=== PATIENT | male | born 1965 | race Caucasian/White ===

== ENCOUNTER 2021-10-10 13:33 | Emergency (ER) | payer BC ==
[2021-10-10 15:05] LABS: Protime INR 1.01
[2021-10-10 15:14] LABS: Absolute Lymphocytes (CBC) 0.4 K/uL (0.7-4.9); Basophils % 0.2 % (0-1.3); Hematocrit 40.6 % (39.6-49.0); Lymphocytes % 14.7 % (15.3-44.8); MPV 7.7 fL (7.6-11.3); RBC Red Blood Cell Count 4.79 M/uL (4.33-5.43)
[2021-10-10 15:22] LABS: ALT/SGPT 51 U/L (12-78); AST/SGOT 43 U/L (15-37); Albumin 3.2 g/dL (3.4-5.0); Alkaline Phosphatase 61 U/L (45-117); BUN Blood Urea Nitrogen 21 mg/dL (7-18); Bicarbonate 32 mmol/L (21-32); Bilirubin Direct 0.2 mg/dL (0-0.2); Bilirubin Total 0.5 mg/dL (0.2-1.0); Glucose Level 331 mg/dL (74-106); Magnesium 2.4 mg/dL (1.8-2.4); NT PRO-BNP 62 pg/mL (<125); Protein, Total 7.3 g/dL (6.4-8.2); Sodium Level 134 mmol/L (136-145); Troponin (Emerg Dept Use Only) < 0.02 ng/mL (0.0-0.045)
--- NOTE | 2021-10-10 15:52 | RAD REPORT ---
EXAM DESCRIPTION: RAD - Chest Single View - 10/10/2021 3:30 pm CLINICAL HISTORY: CONGESTION COMPARISON: No comparisons FINDINGS: Lines: None. Lungs: Ill-defined opacities at the left lung base. Pleural: No significant pleural effusions or pneumothorax. Cardiac: The heart size is within normal limits. Bones: No acute fractures. Other: IMPRESSION: Ill-defined left basilar airspace disease could reflect pneumonia.
[2021-10-10] MEDS ORDERED: CEFTRIAXONE 1000 MG/VIAL ONE (16:52)
[2021-10-10] MEDS ORDERED: NA CHLORIDE 0.9% 1,000 ML ONE (16:53)
[2021-10-10] MEDS ORDERED: INSULIN -REGULAR HUMAN 50 UNIT/0.5 ML ML ONE (16:53)
--- NOTE | 2021-10-10 18:45 | ER ---
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 Now he has not been able to eat, is confused, BS is out of control , was seen by net mobile developer and told she heard crackles in right lung , SpO2 was low 90s. Coronavirus screen: Client presents with at least one sign or symptom that may indicate coronavirus-19. Ebola Screen: Patient negative for fever greater than or equal to 101.5 degrees Fahrenheit, and additional compatible Ebola Virus Disease symptoms Patient denies exposure to infectious person. Patient denies travel to an Ebola-affected area in the 21 days before illness onset. No symptoms or risks identified at this time. Initial Sepsis Screen: Does the patient meet any 2 criteria? No. Patient's initial sepsis screen is negative. Does the patient have a suspected source of infection? No. Patient's initial sepsis screen is negative. Risk Assessment: Do you want to hurt yourself or someone else? Patient reports no desire to harm self or others. Onset of symptoms was September 29, 2021. 13:58 Method Of Arrival: Wheelchair iw 13:58 Acuity: LIZ 3 iw Triage Assessment: 14:00 General: Appears in no apparent distress. comfortable, Behavior is cooperative, bp anxious. Pain: Denies pain. EENT: No deficits noted. Neuro: Level of Consciousness is awake, alert, obeys commands, Oriented to Appropriate for age. Cardiovascular: No deficits noted. Respiratory: No deficits noted. GI: No signs and/or symptoms were reported involving the gastrointestinal system. : No signs and/or symptoms were reported regarding the genitourinary system. Derm: No deficits noted. Musculoskeletal: No deficits noted. Historical: - Allergies: 14:01 No Known Allergies; iw - Home Meds: 14:01 Novolin R Sub-Q [Active]; iw - PMHx: 14:01 Diabetes mellitus; iw - PSHx: 14:01 None; iw - Immunization history:: Client reports receiving the 1st dose of the Covid vaccine. - Social history:: Smoking status: Patient/guardian denies using tobacco. Screenin:00 Abuse screen: Denies threats or abuse. Denies injuries from another. Nutritional bp screening: No deficits noted. Tuberculosis screening: No symptoms or risk factors identified. Fall Risk None identified. Assessment: 14:00 General: SEE TRIAGE NOTE. bp 15:00 Reassessment: No changes from previously documented assessment. Patient and/or family bp updated on plan of care and expected duration. Pain level reassessed. 17:00 Reassessment: No changes from previously documented assessment. Patient and/or family bp updated on plan of care and expected duration. Pain level reassessed. 19:02 Reassessment: PT D/C HOME VIA W/C WITH FAMILY. DX WITH COVID PNEUMONIA. bp Vital Signs: 13:58 BP 112 / 70; Pulse 92; Resp 18 S; Temp 98.6(TE); Pulse Ox 96% on R/A; Weight 74.84 kg; iw Height 5 ft. 10 in. (177.80 cm); 15:00 BP 131 / 72; Pulse 88; Resp 16; Pulse Ox 95% ; bp 16:00 BP 121 / 76; Pulse 87; Resp 16; Pulse Ox 95% ; bp 17:00 BP 129 / 68; Pulse 88; Resp 17; Pulse Ox 95% ; bp 19:11 BP 119 / 64; Pulse 94; Resp 16; Temp 98.9; Pulse Ox 96% ; bp 13:58 Body Mass Index 23.67 (74.84 kg, 177.80 cm) iw ED Course: 13:37 Patient arrived in ED. am2 14:00 Patient has correct armband on for positive identification. Bed in low position. Call bp light in reach. Side rails up X2. Adult w/ patient. 14:01 Triage completed. iw 14:01 Arm band placed on. iw 14:09 Paulie Olivarez, MATY is Primary Nurse. bp 14:30 Inserted saline lock: 20 gauge in right forearm, using aseptic technique. Blood bp collected. 14:39 Angel Parsons MD is Attending Physician. kdr 15:30 XRAY Chest (1 view) In Process Unspecified. EDMS 19:11 No provider procedures requiring assistance completed. IV discontinued, intact, bp bleeding controlled, No redness/swelling at site. Pressure dressing applied. Administered Medications: 16:45 Drug: Rocephin - (cefTRIAXone) 1 grams Route: IVPB; Infused Over: 30 mins; Site: right bp forearm; 19:14 Follow up: IV Status: Completed infusion; IV Intake: 50ml bp 16:45 Drug: NS 0.9% 1000 ml Route: IV; Rate: 1 bolus; Site: right forearm; bp 19:13 Follow up: IV Status: Completed infusion; IV Intake: 1000ml bp 16:45 Drug: Insulin Regular Human 6 units {Co-Signature: [email or web address] (Marie Orozco RN).} Route: IVP; bp Site: right forearm; 18:44 Follow up: Response: Blood sugar is lowered bp Intake: 19:13 IV: 1000ml; Total: 1000ml. bp 19:14 IV: 50ml; Total: 1050ml. bp Outcome: 18:45 Discharge ordered by . kdr 19:11 Discharged to home via wheelchair, with family. bp 19:11 Condition: stable 19:11 Discharge instructions given to patient, Instructed on discharge instructions, follow up and referral plans. medication usage, Demonstrated understanding of instructions, follow-up care, medications, Prescriptions given X 2. 19:14 Patient left the ED. bp Signatures: Dispatcher [employer] EDMS Angel Parsons MD MD kdr Ros Warner, RN RN Liat Davey Brian, MATY RN bp Marie Orozco RN [email or web address]
--- NOTE | 2021-10-10 18:45 | EDPHYS ---
Physician Documentation [facility] Name: Edmond Arthur Age: 55 yrs Sex: Male : 1965 Arrival Date: 10/10/2021 Time: 13:37 Bed 6 Private MD: ED Physician Angel Parsons HPI: 10/11 07:10 This 55 yrs old Male presents to ER via Wheelchair with complaints of kdr confusion. 07:10 Patient's been feeling poorly for about the past 9 days. 11 days ago he received his kdr first Covid vaccine. He went to the emergency department in [place] and was diagnosed at that time with Marquez's palsy. He was put on steroids at that point. Since then his blood glucose has been not as well controlled as normal. Lately he has been more confused with decreased appetite. His significant other believes that he may be down 15 to 20 pounds. He was seen by an drum drier operator prior to arrival here. That physician believe that he had some crackles in his right lung base. His oxygen saturation has been in the low 90s. Patient's otherwise in his normal state of health.. Severity of symptoms: At their worst the symptoms were mild moderate in the emergency department the symptoms are unchanged. The patient has not experienced similar symptoms in the past. The patient has been recently seen by a physician:. Historical: - Allergies: 10/10 14:01 No Known Allergies; iw - Home Meds: 14:01 Novolin R Sub-Q [Active]; iw - PMHx: 14:01 Diabetes mellitus; iw - PSHx: 14:01 None; iw - Immunization history:: Client reports receiving the 1st dose of the Covid vaccine. - Social history:: Smoking status: Patient/guardian denies using tobacco. ROS: 10/11 07:10 Constitutional: Negative for fever, chills, and weight loss. kdr Eyes: Negative for injury, pain, redness, and discharge, ENT: Negative for injury, pain, and discharge, Neck: Negative for injury, pain, and swelling, Cardiovascular: Negative for chest pain, palpitations, and edema, Respiratory: Negative for shortness of breath, cough, wheezing, and pleuritic chest pain, Abdomen/GI: Negative for abdominal pain, nausea, vomiting, diarrhea, and constipation, Back: Negative for injury and pain, : Negative for injury, bleeding, discharge, and swelling, MS/Extremity: Negative for injury and deformity, Skin: Negative for injury, rash, and discoloration, Psych: Negative for depression, anxiety, suicide ideation, homicidal ideation, and hallucinations, Allergy/Immunology: Negative for hives, rash, and allergies, Hematologic/Lymphatic: Negative for swollen nodes, abnormal bleeding, and unusual bruising. Constitutional: Positive for body aches, chills, fatigue, fever, malaise, poor PO intake, weight loss. Neuro: Positive for weakness, Mild confusion mild confusion and malaise. Endocrine: Positive for His blood high 200s to mid 300s. Exam: 07:10 Constitutional: This is a well developed, well nourished patient who is awake, alert, kdr and in very mild distress. Head/Face: Normocephalic, atraumatic. Eyes: Pupils equal round and reactive to light, extra-ocular motions intact. Lids and lashes normal. Conjunctiva and sclera are non-icteric and not injected. Cornea within normal limits. Periorbital areas with no swelling, redness, or edema. Neck: Trachea midline, no thyromegaly or masses palpated, and no cervical lymphadenopathy. Supple, full range of motion without nuchal rigidity, or vertebral point tenderness. No Meningismus. Chest/axilla: Normal chest wall appearance and motion. Nontender with no deformity. No lesions are appreciated. Cardiovascular: Regular rate and rhythm with a normal S1 and S2. No gallops, murmurs, or rubs. Normal PMI, no JVD. No pulse deficits. Abdomen/GI: Soft, non-tender, with normal bowel sounds. No distension or tympany. No guarding or rebound. No evidence of tenderness throughout. Back: No spinal tenderness. No costovertebral tenderness. Full range of motion. Skin: Warm, dry with normal turgor. Normal color with no rashes, no lesions, and no evidence of cellulitis. MS/ Extremity: Pulses equal, no cyanosis. Neurovascular intact. Full, normal range of motion. Neuro: Awake and alert, GCS 15, oriented to person, place, time, and situation. Cranial nerves II-XII grossly intact. Motor strength 5/5 in all extremities. Sensory grossly intact. Cerebellar exam normal. Normal gait. Psych: Awake, alert, with orientation to person, place and time. Behavior, mood, and affect are within normal limits. 07:10 Respiratory: the patient does not display signs of respiratory distress, Respirations: normal, Breath sounds: rales, that are mild, are located in both bases, Greater on the greater on the right than the left. Vital Signs: 10/10 13:58 BP 112 / 70; Pulse 92; Resp 18 S; Temp 98.6(TE); Pulse Ox 96% on R/A; Weight 74.84 kg; iw Height 5 ft. 10 in. (177.80 cm); 15:00 BP 131 / 72; Pulse 88; Resp 16; Pulse Ox 95% ; bp 16:00 BP 121 / 76; Pulse 87; Resp 16; Pulse Ox 95% ; bp 17:00 BP 129 / 68; Pulse 88; Resp 17; Pulse Ox 95% ; bp 19:11 BP 119 / 64; Pulse 94; Resp 16; Temp 98.9; Pulse Ox 96% ; bp 13:58 Body Mass Index 23.67 (74.84 kg, 177.80 cm) iw MDM: 18:45 Patient medically screened. kdr 10/11 07:10 Data reviewed: vital signs, nurses notes, lab test result(s), radiologic studies. ED kdr course: Patient improved patient proved with the interventions given. He still appeared generally weak but was responding appropriately to questions and his vital signs had remained stable and within normal limits since arrival. Unbeknownst to the patient and his significant other he did test positive for Covid. Patient was able to take p.o. and was otherwise stable I reviewed all laboratory results and x-ray results with the patient and significant other. They were happy with the care provided and the plan for discharge with follow-up. 10/10 14:41 Order name: Basic Metabolic Panel; Complete Time: 16:27 kdr 10/10 14:41 Order name: CBC with Diff; Complete Time: 16:27 kdr 10/10 14:41 Order name: LFT's; Complete Time: 16:27 kdr 10/10 14:41 Order name: Magnesium; Complete Time: 16:27 kdr 10/10 14:41 Order name: NT PRO-BNP; Complete Time: 16:27 kdr 10/10 14:41 Order name: PT-INR; Complete Time: 16:27 kdr 10/10 14:41 Order name: Troponin (emerg Dept Use Only); Complete Time: 16:27 kdr 10/10 14:41 Order name: XRAY Chest (1 view); Complete Time: 16:27 kdr 10/10 16:20 Order name: SARS-COV-2 RT PCR; Complete Time: 17:36 EDMS 10/10 18:36 Order name: Glucose, Ancillary Testing EDMS 10/10 14:41 Order name: Cardiac monitoring; Complete Time: 14:51 kdr 10/10 14:41 Order name: EKG - Nurse/Tech; Complete Time: 15:41 kdr 10/10 14:41 Order name: IV Saline Lock; Complete Time: 15:41 kdr 10/10 14:41 Order name: Labs collected and sent; Complete Time: 15:41 kdr 10/10 14:41 Order name: O2 Per Protocol; Complete Time: 14:47 kdr 10/10 14:41 Order name: O2 Sat Monitoring; Complete Time: 14:47 kdr 10/10 17:57 Order name: FSBS; Complete Time: 18:44 kdr Administered Medications: 10/10 16:45 Drug: Rocephin - (cefTRIAXone) 1 grams Route: IVPB; Infused Over: 30 mins; Site: right bp forearm; 19:14 Follow up: IV Status: Completed infusion; IV Intake: 50ml bp 16:45 Drug: NS 0.9% 1000 ml Route: IV; Rate: 1 bolus; Site: right forearm; bp 19:13 Follow up: IV Status: Completed infusion; IV Intake: 1000ml bp 16:45 Drug: Insulin Regular Human 6 units {Co-Signature: [email or web address] (Marie Orozco RN).} Route: IVP; bp Site: right forearm; 18:44 Follow up: Response: Blood sugar is lowered bp Disposition Summary: 10/10/21 18:45 Discharge Ordered Location: Home kdr Problem: new kdr Symptoms: have improved kdr Condition: Stable kdr Diagnosis - Weakness kdr - Pneumonia, unspecified organism kdr - SARS-associated coronavirus as the cause of diseases classified elsewhere kdr Followup: kdr - With: Private Physician - When: 2 - 3 days - Reason: If symptoms return, Further diagnostic work-up, Recheck today's complaints, Continuance of care, Re-evaluation by your physician Discharge Instructions: - Discharge Summary Sheet kdr - Community-Acquired Pneumonia, Adult kdr - Fatigue kdr - Weakness, [id number] kdr - COVID-19 kdr Forms: - Medication Reconciliation Form kdr - Thank You Letter kdr - Antibiotic Education kdr Prescriptions: - Zofran 4 mg Oral Tablet - take 1 tablet by ORAL route every 4-6 hours As needed; 12 tablet; Refills: 0, kdr Product Selection Permitted - Cipro 500 mg Oral Tablet - take 1 tablet by ORAL route every 12 hours for 7 days; 14 tablet; Refills: 0, kdr Product Selection Permitted Signatures: Dispatcher [employer] EDMS Angel Parsons MD MD kdr Ros Warner, RN RN iw Fabrice Law, AD TRAFFICKER-C AD TRAFFICKER-Cla1 Paulie Olivarez RN RN bp Marie Orozco RN [email or web address] Corrections: (The following items were deleted from the chart) 16:20 14:42 CORONAVIRUS+ ordered. EDMS EDMS
[2021-10-10 19:37] VITALS: BP 119/64; TEMP 98.9; O2SAT 96
== END 2021-10-10 19:14 | disposition home or self-care (01) ==
LOC: ER 13:33
DX: U07.1 COVID-19 (principal); J18.9 Pneumonia, unspecified organism; E11.9 Type 2 diabetes mellitus without complications; Z79.4 Long term (current) use of insulin
CPT/HCPCS: 96365; 85025; 80048; 36415; 83735; 85610; 82947; 80076; 84484; 83880; 71045; 96375; 99284; 96366; U0003; J7030